=== PATIENT | male | born 1965 | race Caucasian/White ===

== ENCOUNTER 2020-03-13 16:49 | Inpatient (IN) ==
[2020-03-13] MEDS ORDERED: Azithromycin 500 MG in 0.9 % Sodium Chloride 250 ML IVPB ONE (18:06)
[2020-03-13] MEDS ORDERED: cefTRIAXone 1,000 MG in 0.9 % Sodium Chloride Mini Bag 100 ML IVPB ONE (18:06)
[2020-03-13 18:17] LABS: Basophils % 0.1 %; Eosinophils % 0.4 %; Hematocrit 31.7 % (37.5-50.1); Hemoglobin 10.2 g/dL (12.9-16.9); Immature Granulocytes % 0.7 % (0-4); Lymphocytes % 12.1 %; Mean Corpuscular HGB Conc 32.2 g/dL (31.6-35.5); Mean Corpuscular Hemoglobin 29.6 pg (28.0-33.3); Mean Corpuscular Volume 91.9 fL (83.0-100.0); Mean Platelet Volume 10.1 fL (9.4-12.4); Monocytes # 0.7 K/mcL (0.0-1.3); Neutrophils # 6.7 K/mcL (1.6-8.9); Platelet Count 243 K/mcL (140-400); Red Blood Count 3.45 M/mcL (4.19-5.50); Red Cell Distribution Width 12.4 % (11.5-14.5); Segmented Neutrophils % 78.7 %; White Blood Count 8.5 K/mcL (4.3-11.1)
[2020-03-13 18:22] LABS: INR 1.2; Prothrombin Time 13.9 Seconds (9.4-12.1)
[2020-03-13 18:24] LABS: Activated Partial Thrombo Time 31.5 Seconds (26.0-36.0)
[2020-03-13] MEDS ORDERED: cefTRIAXone 1,000 MG in Water for inj. (sterile) 10 ML IVP ONE (18:30)
[2020-03-13 18:36] LABS: Alanine Aminotransferase 35 Units/L (7-52); Albumin 3.5 g/dL (3.5-5.7); Albumin/Globulin Ratio 0.8 (1.1-2.2); Alkaline Phosphatase 79 Units/L (34-104); Aspartate Amino Transferase 47 Units/L (13-39); BUN/Creatinine Ratio 27 (6-26); Bilirubin,Direct 0.2 mg/dL (0.0-0.2); Bilirubin,Indirect 0.5 mg/dL (0.0-1.0); Bilirubin,Total 0.7 mg/dL (0.3-1.0); Blood Urea Nitrogen 23 mg/dL (6-20); C-Reactive Protein 154 mg/L (Less than 10); Calcium 9.1 mg/dL (8.6-10.3); Carbon Dioxide 24 mEq/L (23-29); Chloride 100 mEq/L (98-107); Globulin 4.5 g/dL (2.4-3.5); Glucose 45 mg/dL (70-105); Osmolality,Calculated 285 (280-300); Phosphorous 2.9 mg/dL (2.7-4.5); Potassium 3.4 mEq/L (3.5-5.1); Sodium 137 mEq/L (136-145); Troponin I < 0.03 ng/mL (< 0.04); eGFR For African Americans > 60 (> 60); eGFR For Non-African Americans > 60 (> 60)
[2020-03-13 19:51] LABS: Adenovirus Not Detected (Not Detect); Bordetella Pertussis Not Detected (Not Detect); Chlamydophila pneumoniae Not Detected (Not Detect); Coronavirus 229E Not Detected (Not Detect); Coronavirus HKU1 Not Detected (Not Detect); Coronavirus NL63 Not Detected (Not Detect); Coronavirus OC43 Not Detected (Not Detect); Human Metapneumovirus Not Detected (Not Detect); Human Rhinovirus/Enterovirus Not Detected (Not Detect); Influenza A Subtype 2009 H1 Not Detected (Not Detect); Influenza B Not Detected (Not Detect); Mycoplasma pneumoniae Not Detected (Not Detect); Parainfluenza Virus 1 Not Detected (Not Detect); Parainfluenza Virus 2 Not Detected (Not Detect); Parainfluenza Virus 3 Not Detected (Not Detect); Parainfluenza Virus 4 Not Detected (Not Detect); Respiratory Syncytial Virus Not Detected (Not Detect)
[2020-03-13 19:53] LABS: SARS-CoV-2 DETECTED (Not Detect)
[2020-03-13] MEDS ORDERED: Naloxone 0.4 MG/ML INJ IVP PRN (20:22)
[2020-03-13] MEDS ORDERED: *HR* Dextrose 50 % in Water (Vial) 50 ML VIAL IVP PRN (22:12)
[2020-03-13] MEDS ORDERED: Potassium Chloride Elixir 20 MEQ/15 ML UDC PO ONE (22:12)
[2020-03-13] MEDS ORDERED: D5% in Water 1,000 ML IVC PRN (22:12)
[2020-03-13] MEDS ORDERED: Dextrose Gel 15 GM/37.5 ML TUBE PO PRN ×2 (22:12)
[2020-03-13] MEDS: Dexamethasone 4 MG/ML VIAL IVP SCH (22:33)
[2020-03-13] MEDS: Ipratropium 1 PUFF INHALER IH SCH (23:29)
[2020-03-14] MEDS: Ipratropium 1 PUFF INHALER IH SCH ×5 (04:49→19:42)
[2020-03-14 05:54] LABS: Hematocrit 40.1 % (37.5-50.1); Lymphocytes # 0.3 K/mcL (0.6-4.6); Mean Corpuscular HGB Conc 32.2 g/dL (31.6-35.5); Mean Corpuscular Hemoglobin 30.1 pg (28.0-33.3); Mean Corpuscular Volume 93.7 fL (83.0-100.0); Mean Platelet Volume 10.1 fL (9.4-12.4); Monocytes # 0.1 K/mcL (0.0-1.3); Platelet Count 152 K/mcL (140-400); Red Blood Count 4.28 M/mcL (4.19-5.50); Red Cell Distribution Width 12.3 % (11.5-14.5)
[2020-03-14 05:55] LABS: INR 1.3; Prothrombin Time 14.4 Seconds (9.4-12.1)
[2020-03-14] MEDS ORDERED: *HR* Heparin 5,000 UNIT/ML VIAL SQ SCH (06:00)
[2020-03-14 06:09] LABS: Hemoglobin 12.9 g/dL (12.9-16.9); White Blood Count 2.8 K/mcL (4.3-11.1)
[2020-03-14 06:13] LABS: Alanine Aminotransferase 33 Units/L (7-52); Albumin 3.3 g/dL (3.5-5.7); Albumin/Globulin Ratio 0.7 (1.1-2.2); Alkaline Phosphatase 80 Units/L (34-104); Aspartate Amino Transferase 43 Units/L (13-39); BUN/Creatinine Ratio 28 (6-26); Bilirubin,Total 0.6 mg/dL (0.3-1.0); Blood Urea Nitrogen 23 mg/dL (6-20); Calcium 8.7 mg/dL (8.6-10.3); Carbon Dioxide 24 mEq/L (23-29); Chloride 100 mEq/L (98-107); Globulin 4.5 g/dL (2.4-3.5); Glucose 319 mg/dL (70-105); Magnesium 1.9 mg/dL (1.6-2.6); Osmolality,Calculated 292 (280-300); Phosphorous 2.6 mg/dL (2.7-4.5); Potassium 4.8 mEq/L (3.5-5.1); Sodium 133 mEq/L (136-145); Total Protein 7.8 g/dL (6.4-8.9); eGFR For African Americans > 60 (> 60); eGFR For Non-African Americans > 60 (> 60)
[2020-03-14 06:41] LABS: Neutrophils # 2.2 K/mcL (1.6-8.9); Platelet Estimate Normal (Normal)
[2020-03-14] MEDS: cefTRIAXone 1,000 MG in Water for inj. (sterile) 10 ML IVP SCH (07:29)
[2020-03-14] MEDS: Dexamethasone 4 MG/ML VIAL IVP SCH (07:30)
[2020-03-14] MEDS: Insulin LISPRO 300 UNITS/3 ML VIAL SQ SCH ×4 (07:55→20:04)
[2020-03-14] MEDS ORDERED: *HR* Enoxaparin 30 MG/0.3 ML SYRINGE SQ ONE (12:26)
[2020-03-14] MEDS: Furosemide 20 MG/2 ML VIAL IVP SCH (13:56)
[2020-03-14] MEDS ORDERED: Azithromycin 500 MG in D5% in Water 250 ML IVPB SCH (18:00)
[2020-03-14] MEDS ORDERED: Insulin DETEMIR 100 UNIT/ML X5UNITS SQ SCH (21:00)
[2020-03-15] MEDS: Ipratropium 1 PUFF INHALER IH SCH ×7 (00:09→23:38)
[2020-03-15] MEDS ORDERED: *HR* Enoxaparin 40 MG/0.4 ML SYRINGE SQ SCH (06:00)
[2020-03-15 06:41] LABS: Hematocrit 39.7 % (37.5-50.1); Hemoglobin 12.8 g/dL (12.9-16.9); Mean Corpuscular HGB Conc 32.2 g/dL (31.6-35.5); Mean Corpuscular Hemoglobin 30.4 pg (28.0-33.3); Mean Corpuscular Volume 94.3 fL (83.0-100.0); Mean Platelet Volume 10.3 fL (9.4-12.4); Platelet Count 361 K/mcL (140-400); Red Blood Count 4.21 M/mcL (4.19-5.50); Red Cell Distribution Width 12.2 % (11.5-14.5)
[2020-03-15 06:55] LABS: White Blood Count 8.7 K/mcL (4.3-11.1)
[2020-03-15 06:56] LABS: BUN/Creatinine Ratio 36 (6-26); Blood Urea Nitrogen 31 mg/dL (6-20); Calcium 9.3 mg/dL (8.6-10.3); Carbon Dioxide 28 mEq/L (23-29); Chloride 102 mEq/L (98-107); Glucose 252 mg/dL (70-105); Magnesium 1.9 mg/dL (1.6-2.6); Osmolality,Calculated 303 (280-300); Potassium 4.5 mEq/L (3.5-5.1); Sodium 139 mEq/L (136-145); eGFR For African Americans > 60 (> 60); eGFR For Non-African Americans > 60 (> 60)
[2020-03-15] MEDS: Insulin LISPRO 300 UNITS/3 ML VIAL SQ SCH ×4 (08:20→20:21)
[2020-03-15] MEDS: Furosemide 20 MG/2 ML VIAL IVP SCH (08:24)
[2020-03-15] MEDS: cefTRIAXone 1,000 MG in Water for inj. (sterile) 10 ML IVP SCH (08:24)
[2020-03-15] MEDS: lisinopriL 20 MG TABLET PO SCH (08:25)
[2020-03-15] MEDS: Aspirin Enteric Coated 81 MG Tablet PO SCH (08:25)
[2020-03-15] MEDS: hydroCHLOROthiazide 25 MG TABLET PO SCH (08:25)
[2020-03-15] MEDS ORDERED: 0.9 % Sodium Chloride 250 ML ONE ×2 (08:48→11:44)
[2020-03-15] MEDS: Dexamethasone 4 MG/ML VIAL IVP SCH (09:35)
[2020-03-15] MEDS ORDERED: Azithromycin 250 MG TABLET PO SCH (16:00)
[2020-03-15] MEDS: Insulin DETEMIR 100 UNIT/ML X5UNITS SQ SCH (20:20)
[2020-03-16] MEDS: Ipratropium 1 PUFF INHALER IH SCH ×6 (03:10→23:18)
[2020-03-16 06:21] LABS: Hematocrit 40.6 % (37.5-50.1); Hemoglobin 13.1 g/dL (12.9-16.9); Mean Corpuscular HGB Conc 32.3 g/dL (31.6-35.5); Mean Corpuscular Hemoglobin 30.2 pg (28.0-33.3); Mean Corpuscular Volume 93.5 fL (83.0-100.0); Mean Platelet Volume 9.9 fL (9.4-12.4); Platelet Count 424 K/mcL (140-400); Red Blood Count 4.34 M/mcL (4.19-5.50); Red Cell Distribution Width 11.9 % (11.5-14.5); White Blood Count 9.8 K/mcL (4.3-11.1)
[2020-03-16 06:40] LABS: BUN/Creatinine Ratio 39 (6-26); Blood Urea Nitrogen 31 mg/dL (6-20); Calcium 9.5 mg/dL (8.6-10.3); Carbon Dioxide 28 mEq/L (23-29); Chloride 100 mEq/L (98-107); Glucose 188 mg/dL (70-105); Osmolality,Calculated 298 (280-300); Potassium 4.2 mEq/L (3.5-5.1); Sodium 138 mEq/L (136-145); eGFR For African Americans > 60 (> 60); eGFR For Non-African Americans > 60 (> 60)
[2020-03-16] MEDS: Aspirin Enteric Coated 81 MG Tablet PO SCH (10:36)
[2020-03-16] MEDS: Insulin LISPRO 300 UNITS/3 ML VIAL SQ SCH ×4 (10:36→21:09)
[2020-03-16] MEDS: hydroCHLOROthiazide 25 MG TABLET PO SCH (10:37)
[2020-03-16] MEDS: Insulin DETEMIR 100 UNIT/ML X5UNITS SQ SCH ×2 (10:37→20:43)
[2020-03-16] MEDS: Furosemide 20 MG/2 ML VIAL IVP SCH (10:37)
[2020-03-16] MEDS: Dexamethasone 4 MG/ML VIAL IVP SCH (10:37)
[2020-03-16] MEDS: *HR* Enoxaparin 40 MG/0.4 ML SYRINGE SQ SCH (10:38)
[2020-03-16] MEDS: cefTRIAXone 1,000 MG in Water for inj. (sterile) 10 ML IVP SCH (10:38)
[2020-03-16] MEDS: lisinopriL 20 MG TABLET PO SCH (10:39)
[2020-03-16] MEDS ORDERED: Sennosides/Docusate Sodium TABLET PO PRN (13:20)
[2020-03-16] MEDS: polyethylene glycoL 3350 17 GM POWD.PACK PO SCH ×3 (16:44→21:12)
[2020-03-17] MEDS: Ipratropium 1 PUFF INHALER IH SCH ×6 (03:30→23:45)
[2020-03-17 05:13] LABS: Hematocrit 42.8 % (37.5-50.1); Hemoglobin 13.5 g/dL (12.9-16.9); Mean Corpuscular HGB Conc 31.5 g/dL (31.6-35.5); Mean Corpuscular Volume 91.8 fL (83.0-100.0); Mean Platelet Volume 9.6 fL (9.4-12.4); Platelet Count 515 K/mcL (140-400); Red Blood Count 4.66 M/mcL (4.19-5.50); Red Cell Distribution Width 12.2 % (11.5-14.5); White Blood Count 10.2 K/mcL (4.3-11.1)
[2020-03-17 05:36] LABS: BUN/Creatinine Ratio 39 (6-26); Blood Urea Nitrogen 34 mg/dL (6-20); Calcium 9.8 mg/dL (8.6-10.3); Carbon Dioxide 28 mEq/L (23-29); Chloride 99 mEq/L (98-107); Glucose 171 mg/dL (70-105); Osmolality,Calculated 296 (280-300); Potassium 4.1 mEq/L (3.5-5.1); Sodium 137 mEq/L (136-145); eGFR For African Americans > 60 (> 60); eGFR For Non-African Americans > 60 (> 60)
[2020-03-17] MEDS: Aspirin Enteric Coated 81 MG Tablet PO SCH (07:43)
[2020-03-17] MEDS: lisinopriL 20 MG TABLET PO SCH (07:44)
[2020-03-17] MEDS: polyethylene glycoL 3350 17 GM POWD.PACK PO SCH ×2 (07:44→21:24)
[2020-03-17] MEDS: hydroCHLOROthiazide 25 MG TABLET PO SCH (07:44)
[2020-03-17] MEDS: Furosemide 20 MG/2 ML VIAL IVP SCH (07:45)
[2020-03-17] MEDS: Dexamethasone 4 MG/ML VIAL IVP SCH (07:46)
[2020-03-17] MEDS: cefTRIAXone 1,000 MG in Water for inj. (sterile) 10 ML IVP SCH (07:47)
[2020-03-17] MEDS: *HR* Enoxaparin 40 MG/0.4 ML SYRINGE SQ SCH (07:49)
[2020-03-17] MEDS: Insulin DETEMIR 100 UNIT/ML X5UNITS SQ SCH ×2 (07:50→21:48)
[2020-03-17] MEDS: Insulin LISPRO 300 UNITS/3 ML VIAL SQ SCH ×4 (08:13→21:49)
[2020-03-18 02:15] LABS: Hematocrit 44.2 % (37.5-50.1); Hemoglobin 13.9 g/dL (12.9-16.9); Mean Corpuscular HGB Conc 31.4 g/dL (31.6-35.5); Mean Corpuscular Volume 92.1 fL (83.0-100.0); Mean Platelet Volume 9.9 fL (9.4-12.4); Platelet Count 555 K/mcL (140-400); Red Cell Distribution Width 12.2 % (11.5-14.5); White Blood Count 12.7 K/mcL (4.3-11.1)
[2020-03-18 02:25] LABS: BUN/Creatinine Ratio 53 (6-26); Blood Urea Nitrogen 41 mg/dL (6-20); Calcium 9.9 mg/dL (8.6-10.3); Carbon Dioxide 26 mEq/L (23-29); Chloride 99 mEq/L (98-107); Glucose 179 mg/dL (70-105); Osmolality,Calculated 297 (280-300); Potassium 4.2 mEq/L (3.5-5.1); Sodium 136 mEq/L (136-145); eGFR For African Americans > 60 (> 60); eGFR For Non-African Americans > 60 (> 60)
[2020-03-18] MEDS: Ipratropium 1 PUFF INHALER IH SCH ×6 (03:16→23:56)
[2020-03-18] MEDS: Aspirin Enteric Coated 81 MG Tablet PO SCH (07:47)
[2020-03-18] MEDS: Dexamethasone 4 MG/ML VIAL IVP SCH (07:48)
[2020-03-18] MEDS: Insulin DETEMIR 100 UNIT/ML X5UNITS SQ SCH ×2 (07:49→21:26)
[2020-03-18] MEDS: Furosemide 20 MG/2 ML VIAL IVP SCH ×3 (07:49→16:34)
[2020-03-18] MEDS: polyethylene glycoL 3350 17 GM POWD.PACK PO SCH ×2 (07:50→21:04)
[2020-03-18] MEDS: *HR* Enoxaparin 40 MG/0.4 ML SYRINGE SQ SCH (07:50)
[2020-03-18] MEDS: lisinopriL 20 MG TABLET PO SCH (07:51)
[2020-03-18] MEDS: Insulin LISPRO 300 UNITS/3 ML VIAL SQ SCH ×4 (08:04→21:27)
[2020-03-19] MEDS: Ipratropium 1 PUFF INHALER IH SCH ×5 (03:41→20:01)
[2020-03-19 05:57] LABS: Hematocrit 43.7 % (37.5-50.1); Hemoglobin 13.6 g/dL (12.9-16.9); Mean Corpuscular HGB Conc 31.1 g/dL (31.6-35.5); Mean Corpuscular Hemoglobin 28.8 pg (28.0-33.3); Mean Corpuscular Volume 92.4 fL (83.0-100.0); Mean Platelet Volume 9.7 fL (9.4-12.4); Platelet Count 575 K/mcL (140-400); Red Blood Count 4.73 M/mcL (4.19-5.50); Red Cell Distribution Width 12.3 % (11.5-14.5); White Blood Count 13.3 K/mcL (4.3-11.1)
[2020-03-19 06:20] LABS: BUN/Creatinine Ratio 53 (6-26); Blood Urea Nitrogen 43 mg/dL (6-20); Calcium 9.5 mg/dL (8.6-10.3); Carbon Dioxide 26 mEq/L (23-29); Chloride 99 mEq/L (98-107); Glucose 149 mg/dL (70-105); Osmolality,Calculated 294 (280-300); Sodium 135 mEq/L (136-145); eGFR For African Americans > 60 (> 60); eGFR For Non-African Americans > 60 (> 60)
[2020-03-19] MEDS: *HR* Enoxaparin 40 MG/0.4 ML SYRINGE SQ SCH (09:39)
[2020-03-19] MEDS: Aspirin Enteric Coated 81 MG Tablet PO SCH (09:39)
[2020-03-19] MEDS: lisinopriL 20 MG TABLET PO SCH (09:39)
[2020-03-19] MEDS: Dexamethasone 4 MG/ML VIAL IVP SCH (09:40)
[2020-03-19] MEDS: polyethylene glycoL 3350 17 GM POWD.PACK PO SCH ×2 (09:40→21:36)
[2020-03-19] MEDS: Furosemide 20 MG/2 ML VIAL IVP SCH (09:40)
[2020-03-19] MEDS: Insulin LISPRO 300 UNITS/3 ML VIAL SQ SCH ×4 (09:42→22:05)
[2020-03-19] MEDS: Insulin DETEMIR 100 UNIT/ML X5UNITS SQ SCH ×2 (09:44→22:05)
[2020-03-19] MEDS ORDERED: Furosemide 20 MG/2 ML VIAL IVP SCH (17:00)
[2020-03-20] MEDS: Ipratropium 1 PUFF INHALER IH SCH ×7 (00:19→23:51)
[2020-03-20 01:19] LABS: Hematocrit 40.6 % (37.5-50.1); Hemoglobin 13.1 g/dL (12.9-16.9); Mean Corpuscular HGB Conc 32.3 g/dL (31.6-35.5); Mean Corpuscular Volume 92.9 fL (83.0-100.0); Mean Platelet Volume 9.6 fL (9.4-12.4); Platelet Count 532 K/mcL (140-400); Red Blood Count 4.37 M/mcL (4.19-5.50); Red Cell Distribution Width 12.2 % (11.5-14.5); White Blood Count 11.6 K/mcL (4.3-11.1)
[2020-03-20 01:38] LABS: BUN/Creatinine Ratio 44 (6-26); Blood Urea Nitrogen 45 mg/dL (6-20); Calcium 9.3 mg/dL (8.6-10.3); Carbon Dioxide 24 mEq/L (23-29); Chloride 99 mEq/L (98-107); Glucose 296 mg/dL (70-105); Osmolality,Calculated 301 (280-300); Potassium 4.3 mEq/L (3.5-5.1); Sodium 134 mEq/L (136-145); eGFR For African Americans > 60 (> 60); eGFR For Non-African Americans > 60 (> 60)
[2020-03-20] MEDS: lisinopriL 20 MG TABLET PO SCH (09:48)
[2020-03-20] MEDS: Dexamethasone 4 MG/ML VIAL IVP SCH (09:49)
[2020-03-20] MEDS: Aspirin Enteric Coated 81 MG Tablet PO SCH (09:49)
[2020-03-20] MEDS: polyethylene glycoL 3350 17 GM POWD.PACK PO SCH ×2 (09:50→21:20)
[2020-03-20] MEDS: *HR* Enoxaparin 40 MG/0.4 ML SYRINGE SQ SCH (09:50)
[2020-03-20] MEDS: Insulin DETEMIR 100 UNIT/ML X5UNITS SQ SCH ×2 (09:55→21:48)
[2020-03-20] MEDS: Insulin LISPRO 300 UNITS/3 ML VIAL SQ SCH ×4 (10:14→21:50)
[2020-03-21] MEDS: Ipratropium 1 PUFF INHALER IH SCH ×6 (03:29→23:47)
[2020-03-21] MEDS: Aspirin Enteric Coated 81 MG Tablet PO SCH (08:16)
[2020-03-21] MEDS: lisinopriL 20 MG TABLET PO SCH (08:16)
[2020-03-21] MEDS: *HR* Enoxaparin 40 MG/0.4 ML SYRINGE SQ SCH (08:17)
[2020-03-21] MEDS: Dexamethasone 4 MG/ML VIAL IVP SCH (08:17)
[2020-03-21] MEDS: polyethylene glycoL 3350 17 GM POWD.PACK PO SCH ×2 (08:17→20:35)
[2020-03-21] MEDS: Insulin DETEMIR 100 UNIT/ML X5UNITS SQ SCH ×2 (08:19→20:12)
[2020-03-21] MEDS: Insulin LISPRO 300 UNITS/3 ML VIAL SQ SCH ×4 (08:37→20:34)
[2020-03-21 15:28] LABS: Hematocrit 42.2 % (37.5-50.1); Hemoglobin 13.6 g/dL (12.9-16.9); Mean Corpuscular HGB Conc 32.2 g/dL (31.6-35.5); Mean Corpuscular Hemoglobin 29.6 pg (28.0-33.3); Mean Corpuscular Volume 91.7 fL (83.0-100.0); Mean Platelet Volume 9.7 fL (9.4-12.4); Platelet Count 532 K/mcL (140-400); Red Cell Distribution Width 12.4 % (11.5-14.5); White Blood Count 11.5 K/mcL (4.3-11.1)
[2020-03-21 15:43] LABS: BUN/Creatinine Ratio 36 (6-26); Blood Urea Nitrogen 28 mg/dL (6-20); Calcium 8.7 mg/dL (8.6-10.3); Carbon Dioxide 25 mEq/L (23-29); Chloride 99 mEq/L (98-107); Glucose 322 mg/dL (70-105); Osmolality,Calculated 288 (280-300); Potassium 4.6 mEq/L (3.5-5.1); Sodium 130 mEq/L (136-145); eGFR For African Americans > 60 (> 60); eGFR For Non-African Americans > 60 (> 60)
[2020-03-22] MEDS: Ipratropium 1 PUFF INHALER IH SCH ×6 (03:25→23:13)
[2020-03-22 06:17] LABS: Hematocrit 41.8 % (37.5-50.1); Hemoglobin 13.3 g/dL (12.9-16.9); Mean Corpuscular HGB Conc 31.8 g/dL (31.6-35.5); Mean Corpuscular Hemoglobin 29.4 pg (28.0-33.3); Mean Corpuscular Volume 92.5 fL (83.0-100.0); Mean Platelet Volume 9.5 fL (9.4-12.4); Platelet Count 516 K/mcL (140-400); Red Blood Count 4.52 M/mcL (4.19-5.50); Red Cell Distribution Width 12.5 % (11.5-14.5); White Blood Count 12.9 K/mcL (4.3-11.1)
[2020-03-22 06:38] LABS: BUN/Creatinine Ratio 32 (6-26); Blood Urea Nitrogen 24 mg/dL (6-20); Calcium 9.1 mg/dL (8.6-10.3); Carbon Dioxide 26 mEq/L (23-29); Chloride 100 mEq/L (98-107); Glucose 158 mg/dL (70-105); Osmolality,Calculated 285 (280-300); Potassium 4.2 mEq/L (3.5-5.1); Sodium 134 mEq/L (136-145); eGFR For African Americans > 60 (> 60); eGFR For Non-African Americans > 60 (> 60)
[2020-03-22] MEDS: Dexamethasone 4 MG/ML VIAL IVP SCH (08:05)
[2020-03-22] MEDS: Insulin LISPRO 300 UNITS/3 ML VIAL SQ SCH ×4 (08:05→21:08)
[2020-03-22] MEDS: Aspirin Enteric Coated 81 MG Tablet PO SCH (08:06)
[2020-03-22] MEDS: *HR* Enoxaparin 40 MG/0.4 ML SYRINGE SQ SCH (08:06)
[2020-03-22] MEDS: Insulin DETEMIR 100 UNIT/ML X5UNITS SQ SCH (08:06)
[2020-03-22] MEDS: polyethylene glycoL 3350 17 GM POWD.PACK PO SCH ×2 (08:06→21:07)
[2020-03-22] MEDS: lisinopriL 20 MG TABLET PO SCH (08:10)
[2020-03-22] MEDS: Furosemide 40 MG/4 ML VIAL IVP SCH ×2 (10:14→21:06)
[2020-03-22 20:14] VITALS: BP 111/75
[2020-03-22] MEDS ORDERED: Insulin DETEMIR 100 UNIT/ML X5UNITS SQ SCH (21:00)
[2020-03-23] MEDS ORDERED: Dexamethasone 4 MG/ML VIAL IVP SCH (09:00)
[2020-03-26] MEDS ORDERED: Dexamethasone 4 MG/ML VIAL IVP SCH (09:00)
== END 2020-03-23 00:18 | disposition short-term general hospital (02) | DRG 177 ==
LOC: EMEROOARM 16:49 → 2NENU 16:49 → SUATTDRO 19:58 → 2NENU 20:40
PROVIDERS: ADMIT Internal Medicine; ATTEND Internal Medicine